=== PATIENT | female | born 1975 | race Caucasian/White ===

== ENCOUNTER 2017-09-11 09:23 | Day surgery (SDC) | payer BC ==
[2017-09-06 11:24] VITALS: BMI 23.9
[2017-09-11] MEDS ORDERED: Levofloxacin 500 mg/D5W 100 ml Premix Bag ONE (09:53)
[2017-09-11] MEDS ORDERED: Clindamycin/D5W 900 mg/50 ml Premix Bag ONE (09:54)
[2017-09-11] MEDS ORDERED: Midazolam HCl 2 mg/2 ml Vial ONE (10:52)
[2017-09-11] MEDS ORDERED: Fentanyl 250 MCG/5 ML VIAL ONE (10:56)
[2017-09-11] MEDS ORDERED: Sodium Chloride 0.9% 10 ML ONE ×2 (10:57→14:46)
[2017-09-11] MEDS ORDERED: Bacitracin Zinc Ointment 30 gm TUBE ONE (10:57)
[2017-09-11] MEDS ORDERED: Thrombin 5000 UNITS/5 ML VIAL ONE (10:57)
[2017-09-11] MEDS ORDERED: Ketorolac Tromethamine 30 MG/ML VIAL ONE (11:17)
[2017-09-11] MEDS ORDERED: Dexamethasone 20 MG/5 ML VIAL ONE (11:17)
[2017-09-11] MEDS ORDERED: Lidocaine 1% PF 5 ML VIAL ONE (11:17)
[2017-09-11] MEDS ORDERED: Propofol 200 MG/20 ML VIAL ONE (11:17)
[2017-09-11] MEDS ORDERED: PHENYLEPHRINE-NS 100 MCG/ML 10 ML SYRINGE ONE (11:17)
[2017-09-11] MEDS ORDERED: Ondansetron HCl/PF 4 MG/2 ML Vial ONE (11:17)
[2017-09-11] MEDS ORDERED: SUGAMMADEX SODIUM 200 MG/2 ML VIAL ONE (14:18)
[2017-09-11] MEDS ORDERED: tiZANidine HCl 4 MG TAB PO PRN (14:19)
[2017-09-11] MEDS ORDERED: Milk Of Magnesia 30 ML UDCUP PO PRN (14:19)
[2017-09-11] MEDS ORDERED: Promethazine HCl 25 MG/ML VIAL IM PRN ×2 (14:19→15:10)
[2017-09-11] MEDS ORDERED: Mag-Al 1200 mg/1200 mg/30 ML UDCUP PO PRN (14:19)
[2017-09-11] MEDS ORDERED: Bisacodyl 10 MG SUPP PR PRN (14:19)
[2017-09-11] MEDS ORDERED: Acetaminophen 325 MG TAB PO PRN (14:19)
[2017-09-11] MEDS ORDERED: Fleet Enema 133 ML BOT PR PRN (14:19)
[2017-09-11] MEDS ORDERED: Acetaminophen/Codeine 30-300mg Tablet PO PRN (14:19)
[2017-09-11] MEDS ORDERED: Promethazine HCl 25 MG/ML VIAL ONE ×2 (14:44→14:46)
[2017-09-11] MEDS ORDERED: Fentanyl 100 MCG/2 ML VIAL ONE (14:44)
[2017-09-11] MEDS ORDERED: Promethazine HCl 25 MG/ML VIAL SLOW IVP PRN (15:10)
[2017-09-11] MEDS ORDERED: Ondansetron HCl/PF 4 MG/2 ML Vial IVP PRN (15:10)
--- NOTE | 2017-09-11 15:24 | OP ---
OR: 5 WOUND TYPE: Type 1 wound. SURGEON: Rick Rico M.D. [employer] INTERPRETER: Yvon Oleary PA-C. PREPROCEDURE DIAGNOSES: L5-S1 disk extrusion, low back and left leg pain. POSTPROCEDURE DIAGNOSES: L5-S1 disk extrusion, low back and left leg pain with disk extrusion cory ing the left and the right, lateral recesses of L5-S1. PROCEDURES: 1. L5-S1 laminectomy, partial facetectomy, and foraminotomies over the L5 and S1 nerve roots. 2. Use of operative microscope for microdissection. DESCRIPTION OF PROCEDURE: After informed consent was obtained from the patient, the patient brought to OR 5. Proper patient pause and identification was carried out. She was placed under excellent general endotracheal anesthesia and positioned prone on the operating room table. All appropriate p oints were padded. Identified the midline L5-S1 segment. This area was sterilely cleansed, prepare d, and draped. Proper patient pause and identification was carried out. The wound was then opened with a combination of sharp, monopolar and blunt dissection. The L5-S1 dorsal spines and lamina wer e exposed. Localization film confirmed our area of interest. We then performed an L5-S1 laminectom y, partial facetectomy, and foraminotomies. The microscope was then brought in the field for microd issection and proceeded over of the shoulder of the left S1 nerve root. Multiple disk fragments wer e removed. We then turned our attention to the right shoulder of the right S1 nerve root. Multiple fragments were removed there. We assured excellent freedom of the L5 and S1 nerve roots and the co mmon dural tube and hemostasis was maximized throughout. There was no spinal fluid leak. The wound was copiously irrigated and closed in anatomic layers following the sprinkling of vancomycin powder . The patient then emerged from anesthesia.
[2017-09-11] MEDS: Sodium Chloride 0.9% 1,000 ML IV SCH (18:05)
[2017-09-11] MEDS ORDERED: Morphine PF 1 MG/ML SYR IV PRN (20:10)
[2017-09-11] MEDS ORDERED: Morphine 4 MG/ML VIAL IV PRN (20:15)
[2017-09-11] MEDS: Clindamycin/D5W 900 MG in Premix Bag 1 BAG IVPB SCH (20:22)
[2017-09-11] MEDS: Ketotifen Fumarate 0.025% Ophth Soln 5 ml Bottle EA EYE SCH (20:27)
[2017-09-11] MEDS ORDERED: Loratadine 10 MG TAB PO SCH (21:00)
[2017-09-11] MEDS ORDERED: Docusate 100 MG CAP PO SCH (21:00)
[2017-09-11] MEDS ORDERED: Fluticasone Propionate Nasal Spray 16 gm Bottle NASAL SCH (21:00)
[2017-09-11] MEDS: HYDROcodone/Acetaminophen 7.5/325 mg Tablet PO PRN (21:37)
[2017-09-12] MEDS: Sodium Chloride 0.9% 1,000 ML IV SCH ×2 (03:10→16:32)
[2017-09-12] MEDS: Clindamycin/D5W 900 MG in Premix Bag 1 BAG IVPB SCH (03:15)
[2017-09-12] MEDS: HYDROcodone/Acetaminophen 7.5/325 mg Tablet PO PRN (03:15)
[2017-09-12] MEDS ORDERED: Levothyroxine Sodium 50 MCG TAB PO SCH (06:00)
[2017-09-12] MEDS: Ketotifen Fumarate 0.025% Ophth Soln 5 ml Bottle EA EYE SCH (08:28)
--- NOTE | 2017-09-12 10:21 | PRG ---
DATE OF SERVICE: 09/12/2017 Ms. Parmar is postoperative day 1 from an L5-S1 laminectomy and diskectomy. We removed multiple frag ments yesterday and achieved excellent decompression of her L5 and S1 nerve roots. She did have a bi t worsening on the right side intraoperatively than the preoperative MRI had indicated This morning she has paresthesias continuing in the left leg, but also on the right. We had to do a fair amount o f manipulation simply to get all the disk material out. In recovery she did not have any leg symptom s and as such, I suspect this is likely inflammatory. We will initiate gabapentin and a Medrol Dosep ak. I should note on exam, she has excellent strength and we will begin to mobilize her with possibl e dismissal later today.
[2017-09-12] MEDS: methylPREDNISolone 4 mg Tablet PO SCH ×2 (11:00→16:31)
[2017-09-12] MEDS: traMADol HCl 50 MG TAB PO PRN ×2 (11:30→17:39)
[2017-09-12] MEDS ORDERED: Gabapentin 100 MG CAP PO SCH ×2 (12:30→14:00)
[2017-09-12 15:18] VITALS: BP 99/61; TEMP 98.3
[2017-09-13] MEDS ORDERED: methylPREDNISolone 4 mg Tablet PO SCH ×2 (08:00→21:00)
[2017-09-14] MEDS ORDERED: methylPREDNISolone 4 mg Tablet PO SCH (08:00)
[2017-09-15] MEDS ORDERED: methylPREDNISolone 4 mg Tablet PO SCH (08:00)
[2017-09-16] MEDS ORDERED: methylPREDNISolone 4 mg Tablet PO SCH (08:00)
[2017-09-17] MEDS ORDERED: methylPREDNISolone 4 mg Tablet PO SCH (08:00)
== END 2017-09-12 19:25 | disposition home or self-care (01) ==
LOC: SDC 09:23 → SURG A 14:19 → SDC 09-12 19:25
PROVIDERS: ATTEND Surgery
PROC: 01NB0ZZ Release Lumbar Nerve, Open Approach (ICD-10-PCS; principal; 2017-09-12)
PROC: 0ST20ZZ Resection of Lumbar Vertebral Disc, Open Approach (ICD-10-PCS; principal; 2017-09-12)
DX: M51.27 Other intervertebral disc displacement, lumbosacral region (principal); M79.605 Pain in left leg; F41.9 Anxiety disorder, unspecified; E89.0 Postprocedural hypothyroidism; Z79.51 Long term (current) use of inhaled steroids; Z79.52 Long term (current) use of systemic steroids; Z79.899 Other long term (current) drug therapy; Z88.1 Allergy status to other antibiotic agents; Z91.013 Allergy to seafood; Z98.890 Other specified postprocedural states
CPT/HCPCS: 76001; 96374; A4216; J1100; J1885; J1956; J2001; J2250; J2270; J2405; J2550; J2704; J3010; J3370; J3490

== ENCOUNTER 2019-12-18 13:59 | Outpatient (CLI) | payer BC ==
--- NOTE | 2019-12-18 16:05 | ULT ---
LIMITED RIGHT BREAST ULTRASOUND: 12/18/19 PROVIDED CLINICAL HISTORY: Follow-up right breast nodules. FINDINGS: Limited sonographic interrogation of the right breast in the areas of prior sonographic concern was p erformed. At the 8 o'clock position of the right breast 6 cm from the nipple, is a stable 4 mm round to oval circumscribed hyperechoic mass with internal echoes. No shadowing or other concerning finding s. At the 8 o'clock position of the right breast 2 cm from the nipple is a simple appearing cyst. A s imple appearing cyst is also seen at the 9 o'clock position of the right breast IMPRESSION: Stable 4 mm hypoechoic mass involving the right breast at 8 o'clock. Six month follow-up ultrasound a nd mammogram recommended. BIRADS 3: Probably Benign Finding Initial Short-Interval Follow-Up Suggested Initial short-term follow up (usually 6-month) examination POS: OFF
== END 2019-12-18 14:00 | disposition home or self-care (01) ==
LOC: BICULT 13:59
PROVIDERS: ATTEND Student in an Organized Health Care Education/Training Program
DX: N63.13 Unspecified lump in the right breast, lower outer quadrant (principal)
CPT/HCPCS: 84439; 84443; 84481

== ENCOUNTER 2020-07-01 14:46 | Outpatient (CLI) | payer BC ==
--- NOTE | 2020-07-01 16:15 | MMO ---
Bilateral MAMMO Bilat Diag [facility]. CLINICAL HISTORY: Patient is 45 years old and is seen for follow-up at short-interval from prior study. The patient has the following family history of breast cancer: paternal grandmother, malignant (generic). The patient has no personal history of cancer. VIEWS: The views performed were: bilateral craniocaudal with tomosynthesis; bilateral mediolateral oblique with tomosynthesis; and bilateral mediolateral with tomosynthesis. FILMS COMPARED: The present examination has been compared to prior imaging studies performed at [facility] on 04/25/2019 and 06/16/2019, and at [facility] on 12/18/2019 and 07/01/2020. This study has been interpreted with the assistance of computer-aided detection. MAMMOGRAM FINDINGS: The breasts are heterogeneously dense, which could obscure a lesion on mammography. The 4 mm right breast nodule on US (8:00) is stable and is not seen on mammo. In the left breast, there are no suspicious masses, calcifications or areas of architectural distortion. IMPRESSION: FINDING IN THE RIGHT BREAST IS PROBABLY BENIGN. FOLLOW-UP IN 6 MONTHS IS RECOMMENDED. THE RESULTS OF THIS EXAM WERE SENT TO THE PATIENT. ACR BI-RADS Category 3 - Probably benign finding - short interval follow-up suggested. [facility] will notify the patient of the need for additional imaging services. MAMMOGRAPHY NOTE: 1. A negative mammogram report should not delay a biopsy if a dominant of clinically suspicious mass is present. 2. Approximately 10% to 15% of breast cancers are not detected by mammography. 3. Adenosis and dense breasts may obscure an underlying neoplasm. Reported by: ANGELA LEE MD Electonically Signed: [id number]
--- NOTE | 2020-07-01 17:12 | ULT ---
RIGHT BREAST ULTRASOUND: 07/01/20 HISTORY: Follow-up. COMPARISON: 12/18/19. FINDINGS: Correlation is made with mammograms of today. FINDINGS: There is a stable 4 mm well circumscribed hypoechoic mass at the 8 o'clock position, stable since the previous study. IMPRESSION: BIRADS 3: Probably Benign Finding Initial Short-Interval Follow-Up Suggested Initial short-term follow up (usually 6-month) examination. Six month follow-up right breast ultrasound is recommended. POS: OFF
== END 2020-07-01 14:47 | disposition home or self-care (01) ==
LOC: BICMAMMO 14:46
PROVIDERS: ATTEND Student in an Organized Health Care Education/Training Program
DX: N60.09 Solitary cyst of unspecified breast (principal)
CPT/HCPCS: 77066; G0279

== ENCOUNTER 2020-12-30 10:33 | Outpatient (CLI) | payer BC ==
--- NOTE | 2020-12-30 11:24 | ULT ---
Right breast Limited ultrasound: HISTORY: Follow-up of right breast cyst. COMPARISON: 07/01/2020 FINDINGS: Right breast is again evaluated with attention to the 8:00 position, 2 cm from the nipple. Again noted is a 0.4 x 0.4 x 0.5 cm cyst with minimal debris any 8:00 position of the right breast 2 cm from the nipple. This is stable from the prior study. IMPRESSION: BI-RADS Category 3 probably benign findings. The patient is due for a bilateral mammogram in June 2021. An ultrasound examination at that point in time is suggested. That is approximately 2 years from the initial study of 06/16/2019. At that point if this remains stab le as expected then there would be no need to do any additional follow-up with ultrasound
== END 2020-12-30 10:34 | disposition home or self-care (01) ==
LOC: BICMAMMO 10:33
PROVIDERS: ATTEND Student in an Organized Health Care Education/Training Program
DX: N60.01 Solitary cyst of right breast (principal)

== ENCOUNTER 2021-07-13 13:57 | Outpatient (CLI) | payer BC | END 2021-07-13 13:58 | disposition home or self-care (01) | LOC: BICMAMMO 13:57 | PROVIDERS: ATTEND Student in an Organized Health Care Education/Training Program | DX: R92.8 Other abnormal and inconclusive findings on diagnostic imaging of breast (principal); N60.01 Solitary cyst of right breast | CPT/HCPCS: 77066; G0279 ==

== ENCOUNTER 2022-07-14 12:19 | Outpatient (CLI) | payer BC | END 2022-07-14 12:20 | disposition home or self-care (01) | LOC: BICMAMMO 12:19 | PROVIDERS: ATTEND Student in an Organized Health Care Education/Training Program | DX: Z12.31 Encounter for screening mammogram for malignant neoplasm of breast (principal); Z80.3 Family history of malignant neoplasm of breast | CPT/HCPCS: 77063; 77067 ==